=== PATIENT | female | born 1970 | race Caucasian/White ===

== ENCOUNTER → 2017-06-28 | Outpatient (CLI) | payer OTHER ==
[~2017-06-28] MED LIST: ASPI-715 PO; ATR10 PO
--- NOTE | 2017-06-29 11:06 | RADIOLOGY IMAGING REPORT ---
[facility] PATIENT NAME: TRU WALTERS : [id number] MR: [id number] V: [id number] EXAM DATE: [id number] ORDERING PHYSICIAN: MARGOTH DAVE TECHNOLOGIST: Jeni Jones PROCEDURE: LIMITED LEFT BREAST ULTRASOUND COMPARISON:Prior left breast ultrasound dated 04/27/16. INDICATIONS:SIX MONTH FOLLOWUP. FINDINGS: The previously noted hypoechoic nodule in the 6 o'clock position of the left breast could not be identified on today's examination. By history the patient does have a palpable finding in this location therefore a diagnostic mammogram was recommended. DIAGNOSTIC CATEGORY 0--INCOMPLETE: NEED ADDITIONAL IMAGING EVALUATION. RECOMMENDATIONS: ADDITIONAL MAMMOGRAPHIC VIEWS REQUIRED: BILATERAL BREASTS. IMPRESSION: BI-RADS 0: Diagnostic mammogram recommended to evaluate patient's palpable lump in the 6 o'clock position of the left breast. The patient is also due for an annual mammogram. Dictated by: Savita Easton M.D. on 06/28/2017 at 16:39 Transcribed by: KIET on 06/28/2017 at 17:46 Approved by: Savita Easton M.D. on 06/29/2017 at 11:05 [facility]
== END ==
LOC: US 02:07
PROVIDERS: ATTEND Physician Assistant
DX: R92.8 Other abnormal and inconclusive findings on diagnostic imaging of breast (principal)

== ENCOUNTER → 2017-07-12 | Outpatient (CLI) | payer OTHER ==
--- NOTE | 2017-07-12 14:50 | RADIOLOGY IMAGING REPORT ---
[place] [facility] [place] TRU WALTERS : [id number] MR: [id number] V: [id number] EXAM DATE: [id number] ORDERING PHYSICIAN: MARGOTH DAVE TECHNOLOGIST: Siria Chandra PROCEDURE:BILATERAL DIAGNOSTIC DIGITAL MAMMOGRAM WITH CAD ASSISTED INTERPRETATION & 3D TOMOSYNTHESIS TECHNIQUE: Routine CC & MLO 3D tomographic images were obtained of both breasts. CAD was used. COMPARISON:04/16/2015 & 04/27/2016 are available. INDICATIONS:LUMP LT BREAST BREAST DENSITY: Scattered fibroglandular densities. FINDINGS: There is no dominant mass, suspicious cluster of calcifications or persistent areas of architectural distortion. Periareolar dermal calcifications are once again noted. DIAGNOSTIC CATEGORY 1--NEGATIVE. RECOMMENDATIONS: ROUTINE MAMMOGRAM AND CLINICAL EVALUATION IN 1 YR. IMPRESSION: BIRADS 1: Negative. The patient's area of palpable concern 6 o'clock position Left breast should be managed clinically as there is no concerning imaging abnormality. Dictated by: Naldo Hastings M.D. on 07/12/2017 at 14:05 Transcribed by: RICHARD on 07/12/2017 at 14:21 Approved by: Naldo Hastings M.D. on 07/12/2017 at 14:49 [facility]
== END ==
LOC: MAMO 00:57
PROVIDERS: ATTEND Physician Assistant
DX: R92.1 Mammographic calcification found on diagnostic imaging of breast (principal)
CPT/HCPCS: 77062; 77066

== ENCOUNTER → 2018-07-14 | Outpatient (CLI) | payer OTHER ==
--- NOTE | 2018-07-20 08:32 | RADIOLOGY IMAGING REPORT ---
FACILITY: [facility] PATIENT NAME: TRU WALTERS : [id number] MR: [id number] V: [id number] EXAM DATE: [id number] ORDERING PHYSICIAN: RAYMOND TORRES TECHNOLOGIST: Siria Chandra PROCEDURE:BILATERAL DIGITAL SCREENING MAMMOGRAM WITH CAD ASSISTED INTERPRETATION & 3D TOMOSYNTHESIS COMPARISON:Prior mammograms. INDICATIONS:SCREENING FINDINGS: Scattered fibroglandular densities are present in both breasts. Small benign appearing nodularities are scattered in both breasts, unchanged. Benign appearing calcifications are scattered in both breasts. DIAGNOSTIC CATEGORY 1--NEGATIVE. RECOMMENDATIONS: ROUTINE MAMMOGRAM AND CLINICAL EVALUATION IN 1 YR. IMPRESSION: BIRADS 1: Negative. Dictated by: Kd Steele M.D. on 07/14/2018 at 13:50 Transcribed by: TAO on 07/14/2018 at 14:11 Approved by: Savita Easton M.D. on 07/20/2018 at 8:31 [facility]
== END ==
LOC: MAMO 01:23
PROVIDERS: ATTEND Physician Assistant
DX: Z12.31 Encounter for screening mammogram for malignant neoplasm of breast (principal)
CPT/HCPCS: 77063; 77067